=== PATIENT | male | born 1965 | race Caucasian/White ===

== ENCOUNTER 2017-12-17 18:39 | Emergency (ER) | payer OTHER ==
[2017-12-17] MEDS: LIDOCAINE 1% (MDV) 20 ML INJ SC (19:33)
[2017-12-17] MEDS: IBUPROFEN 800 MG TAB PO (20:18)
== END 2017-12-17 20:44 | disposition home or self-care (01) ==
LOC: FTE 18:39
DX: S61.213A Laceration without foreign body of left middle finger without damage to nail, initial encounter (principal); I10 Essential (primary) hypertension; S61.214A Laceration without foreign body of right ring finger without damage to nail, initial encounter; W26.8XXA Contact with other sharp object(s), not elsewhere classified, initial encounter; Z87.891 Personal history of nicotine dependence
CPT/HCPCS: 12001; 73130-LT; 99283-25